=== PATIENT | male | born 1930 | race Caucasian/White ===

== ENCOUNTER 2019-10-14 02:08 | Emergency (ER) | payer OTHER ==
[~2019-10-14] VITALS: Ht 170.2 cm; Wt 72.1 kg
[2019-10-14] MEDS ORDERED: "\\\"BP MED\\\"" (02:30)
== END 2019-10-14 03:15 | disposition home or self-care (01) ==
LOC: ED 02:08
PROC: 0T9B70Z Drainage of Bladder with Drainage Device, Via Natural or Artificial Opening (ICD-10-PCS; principal; 2019-10-14)
PROC: 4A0D7LZ Measurement of Urinary Volume, Via Natural or Artificial Opening (ICD-10-PCS; 2019-10-14)
DX: R33.9 Retention of urine, unspecified (principal); I10 Essential (primary) hypertension; Z79.899 Other long term (current) drug therapy
CPT/HCPCS: 51702; 51798; 81001; 99283-25